=== PATIENT | male | born 1975 | race African-American/Black ===

== ENCOUNTER 2016-10-10 19:05 | Emergency (ER) | payer MEDICARE, OTHER ==
[~2016-10-10] VITALS: Ht 162.6 cm; Wt 70.0 kg
[~2016-10-10 19:05] MED LIST: ADVA100A; ALBU17I INH; MEDR4PAK3 PO
--- NOTE | 2016-10-10 19:19 | PD ---
HPI Chief Complaint: psychiatric evaluation Time Seen by Provider: 19:18 Travel History International Travel<30 days: No Contact w/Intl Traveler<30days: No History of Present Illness HPI 40-year-old male who is physically and mentally handicapped with history of cerebral palsy presents to the presents to the emergency Department under Young act by local police. According to the Young Act, he has been aggressive and throwing things at his facility that he lives in. The patient is unable to contribute much to history and physical due to disability. Patient does know his name, that he is in the hospital, and the month is September. The patient states that he was angry earlier. According to the caregiver, which the nurse called, the patient had a similar episode approximately 2 years ago was placed on hydroxyzine. He has been doing well since until today. The patient denies any medical complaints at this time. [facility] Past Medical History Asthma: Yes Cerebral Palsy: Yes Past Surgical History Neurologic Surgery: Yes (PER SISTER, BRAIN SURGERY A BABY FOR CEREBRAL PALSY ) Social History Alcohol Use: No Tobacco Use: No Substance Use: No Allergies-Medications (Allergen,Severity, Reaction): Coded Allergies: Penicillin (Verified Allergy, Severe, 10/10/16) Reported Meds & Prescriptions Reported Meds & Active Scripts Active Reported Divalproex ER (Divalproex Sodium) 250 Mg Davina 250 Mg PO HS Trazodone (Trazodone HCl) 100 Mg Tablet 100 Mg PO HS Hydroxyzine HCl 25 Mg Tab 25 Mg PO TID PRN Advair Diskus Inh (Fluticasone-Salmeterol Inh) 250-50 Mcg/Blist Aer 1 Puff INH BID Rinse mouth after use. Review of Systems Except as stated in HPI: all other systems reviewed are Neg Physical Exam Narrative GENERAL: Well-nourished, well-developed male patient, afebrile. Patient is ambulatory with assistance. SKIN: Focused skin assessment warm/dry. HEAD: Normocephalic. Atraumatic. EYES: No scleral icterus. No injection or drainage. NECK: Supple, trachea midline. No JVD or lymphadenopathy. CARDIOVASCULAR: Regular rate and rhythm without murmurs, gallops, or rubs. RESPIRATORY: Breath sounds equal bilaterally. No accessory muscle use. Lungs sounds are clear to auscultation. GASTROINTESTINAL: Abdomen soft, non-tender, nondistended. MUSCULOSKELETAL: No cyanosis, or edema. PSYCHIATRIC: No delusional thought processes. No hallucinations. Data Data Last Documented VS Vital Signs Date Time Temp Pulse Resp B/P Pulse Ox O2 Delivery O2 Flow Rate FiO2 10/10/16 19:21 98.9 89 16 111/65 99 Room Air Orders Complete Blood Count With Diff (10/10/16 19:33) Comprehensive Metabolic Panel (10/10/16 19:33) Urinalysis - C+S If Indicated (10/10/16 19:33) Psych Screen (10/10/16 19:33) Drug Screen, Random Urine (10/10/16 19:33) Alcohol (Ethanol) (10/10/16 19:33) Valproic Acid (Depakene) (10/10/16 19:35) Labs Laboratory Tests Test 10/10/16 19:46 White Blood Count 5.6 TH/MM3 Red Blood Count 4.67 MIL/MM3 Hemoglobin 14.3 GM/DL Hematocrit 41.6 % Mean Corpuscular Volume 89.0 FL Mean Corpuscular Hemoglobin 30.6 PG Mean Corpuscular Hemoglobin 34.4 % Concent Red Cell Distribution Width 13.1 % Platelet Count 204 TH/MM3 Mean Platelet Volume 8.7 FL Neutrophils (%) (Auto) 65.3 % Lymphocytes (%) (Auto) 19.4 % Monocytes (%) (Auto) 13.4 % Eosinophils (%) (Auto) 1.3 % Basophils (%) (Auto) 0.6 % Neutrophils # (Auto) 3.7 TH/MM3 Lymphocytes # (Auto) 1.1 TH/MM3 Monocytes # (Auto) 0.8 TH/MM3 Eosinophils # (Auto) 0.1 TH/MM3 Basophils # (Auto) 0.0 TH/MM3 CBC Comment DIFF FINAL Differential Comment Sodium Level 142 MEQ/L Potassium Level 4.1 MEQ/L Chloride Level 108 MEQ/L Carbon Dioxide Level 29.5 MEQ/L Anion Gap 5 MEQ/L Blood Urea Nitrogen 16 MG/DL Creatinine 1.07 MG/DL Estimat Glomerular Filtration 92 ML/MIN Rate Random Glucose 98 MG/DL Calcium Level 8.3 MG/DL Total Bilirubin 0.3 MG/DL Aspartate Amino Transf 19 U/L (AST/SGOT) Alanine Aminotransferase 25 U/L (ALT/SGPT) Alkaline Phosphatase 59 U/L Total Protein 6.4 GM/DL Albumin 3.3 GM/DL Valproic Acid (Depakene) Level 23 MCG/ML Ethyl Alcohol Level LESS THAN 3 MG/DL MDM Medical Decision Making Medical Screen Exam Complete: Yes Emergency Medical Condition: Yes Medical Record Reviewed: Yes Differential Diagnosis Depression versus anxiety versus bipolar disorder versus agitation versus Cerebral palsy versus electrolyte abnormality Narrative Course 40-year-old male with mental and physical disability presents to the emergency Department under Young act by local police for being aggressive at his facility. The patient is unable to contribute much to the history and physical , but does know that his name, but he is in the hospital, and it is September. The patient has no medical complaints right now. CBC, CMP, UA, urine drug screen, alcohol level, Depakote level are ordered and pending. CBC shows no acute abnormality. CMP shows no acute abnormal. Depakote level is 23. Alcohol level is less than 3. UDS is pending. Patient is negative for psychiatric screening and disposition. Mental health screening discussed with the patient. Psychiatric screen ordered. Diagnosis Primary Impression: Difficulty controlling anger Additional Instructions: Patient is medically cleared for psychiatric screening and disposition. Condition: Stable Catrachito,Aracelis BUSTILLO Oct 10, 2016 19:19
[2016-10-10 19:21] VITALS: BP 111/65; PULSE 89; RESP 16; TEMP 98.9; O2SAT 99
[2016-10-10] MEDS ORDERED: DIVA250T3 PO (19:40)
[2016-10-10] MEDS ORDERED: TRAZ100T6 PO (19:40)
[2016-10-10] MEDS ORDERED: HYDR-3133 PO (19:40)
[2016-10-10] MEDS ORDERED: ADVA250A INH (19:40)
[2016-10-10 20:13] LABS: AUTOMATED NEUTROPHIL # 3.7 TH/MM3 (1.8-7.7); BASOPHIL % 0.6 % (0.0-2.0); EOSINOPHIL # 0.1 TH/MM3 (0-0.4); EOSINOPHIL % 1.3 % (0.0-4.0); HEMATOCRIT 41.6 % (39.0-51.0); HEMO FLAGS DIFF FINAL; LYMPH % 19.4 % (9.0-44.0); LYMPHOCYTE # 1.1 TH/MM3 (1.0-4.8); MEAN CORPUSCULAR HEMOGLOBIN 30.6 PG (27.0-34.0); MEAN CORPUSCULAR HGB CONC 34.4 % (32.0-36.0); MONO % 13.4 % (0.0-8.0); NEUT % 65.3 % (16.0-70.0); PLATELET COUNT 204 TH/MM3 (150-450); RED BLOOD COUNT 4.67 MIL/MM3 (4.50-5.90); RED CELL DISTRIBUTION WIDTH 13.1 % (11.6-17.2); WHITE BLOOD COUNT 5.6 TH/MM3 (4.0-11.0)
[2016-10-10 20:30] LABS: ALT (GPT) 25 U/L (12-78); ANION GAP 5 MEQ/L (5-15); AST (GOT) 19 U/L (15-37); BICARBONATE 29.5 MEQ/L (21.0-32.0); BLOOD UREA NITROGEN 16 MG/DL (7-18); CHLORIDE 108 MEQ/L (98-107); GLOMERULAR FILTRATION RATE 92 ML/MIN (>89); POTASSIUM 4.1 MEQ/L (3.5-5.1); SODIUM (NA) 142 MEQ/L (136-145)
[2016-10-10 20:33] LABS: ALKALINE PHOSPHATASE 59 U/L (45-117); TOTAL BILIRUBIN ADULT 0.3 MG/DL (0.2-1.0)
[2016-10-10 21:14] VITALS: BP 113/62; PULSE 68; RESP 18; TEMP 97.7; O2SAT 99
[2016-10-11 02:08] VITALS: BP 95/51; PULSE 59; RESP 18; TEMP 98.5; O2SAT 97
[2016-10-11 04:12] LABS: AMPHETAMINE, URINE NEG (NEG); BARBITURATES, URINE NEG (NEG); COCAINE, URINE NEG (NEG)
[2016-10-11 06:16] VITALS: BP 102/58; PULSE 60; RESP 19; O2SAT 98
--- NOTE | 2016-10-11 10:08 | PD ---
History of Present Illness Chief Complaint: Psychiatric Symptoms Time Seen by Provider: 09:45 Travel History International Travel<30 Days: No Contact w/Intl Traveler<30days: No Known affected area: No Legal Status Legal Status: Young Act Young Act Signed By: Chon Young Act Comment: 10/10/2016 7:00 PM History of Present Illness: Obviously mentally retarded individual, for whom the BA does not apply. He is calm and cooperative. Not appropriate for psychiatric admission. Should be seen by outpatient physician but don't know if medication change is warranted given this was the only episode in 2 years. Valproic acid level noted to be subtherapeutic at 23. PFSH Past Medical History Narrative Medical History of cerebral palsy Asthma: Yes Cerebral Palsy: Yes Immunizations Current: Yes (uto) Past Surgical History Neurologic Surgery: Yes (PER SISTER, BRAIN SURGERY A BABY FOR CEREBRAL PALSY ) Psychiatric History Psychiatric History Hx Psychiatric Treatment: NONE PER CHRISTIAN, ALEJANDRO History of Inpatient Treatment: No Guns or firearms in home: No Social History Hx Alcohol Use: No (uto) Hx Tobacco Use: No (uto) Hx Substance Use: No Hx of Substance Use Treatment: No Allergies-Medications (Allergen,Severity, Reaction): Coded Allergies: Penicillin (Verified Allergy, Severe, 10/10/16) Reported Meds & Prescriptions Reported Meds & Active Scripts Active Reported Divalproex ER (Divalproex Sodium) 250 Mg Davina 250 Mg PO HS Trazodone (Trazodone HCl) 100 Mg Tablet 100 Mg PO HS Hydroxyzine HCl 25 Mg Tab 25 Mg PO TID PRN Advair Diskus Inh (Fluticasone-Salmeterol Inh) 250-50 Mcg/Blist Aer 1 Puff INH BID Rinse mouth after use. Review of Systems ROS Limitations: Speech Impaired, Poor Historian, Other Except as stated in HPI: all other systems reviewed are Neg Exam Alert: Yes [place]: Person, Place Mood: Calm Affect: Other Speech: Slurred Eye Contact: Indirect Memory Intact: Comment (appears baseline) Insight/Judgement Appears baseline MDM Medical Decision Making Medical Record Reviewed: Yes Assessment/Plan 40-year-old male with history of cerebral palsy, dental retardation and asthma. Brought in under a Young act for a caregiver described aggressive outbursts. Patient has been calm and cooperative since his arrival. Young act is being lifted and patient being sent home. Should follow up with his physician. Depakote level low and dosage should be increased to at least therapeutic levels. Orders Complete Blood Count With Diff (10/10/16 19:33) Comprehensive Metabolic Panel (10/10/16 19:33) Psych Screen (10/10/16 19:33) Drug Screen, Random Urine (10/10/16 19:33) Alcohol (Ethanol) (10/10/16 19:33) Valproic Acid (Depakene) (10/10/16 19:35) Diet Regular Basic (10/11/16 Breakfast) Results Vital Signs Date Time Temp Pulse Resp B/P Pulse Ox O2 Delivery O2 Flow Rate FiO2 10/11/16 06:16 60 19 102/58 98 Room Air 10/11/16 02:08 98.5 59 18 95/51 97 Room Air 10/10/16 21:14 97.7 68 18 113/62 99 Room Air 10/10/16 19:21 98.9 89 16 111/65 99 Room Air Laboratory Tests Test 10/10/16 10/11/16 19:46 03:45 White Blood Count 5.6 Red Blood Count 4.67 Hemoglobin 14.3 Hematocrit 41.6 Mean Corpuscular Volume 89.0 Mean Corpuscular Hemoglobin 30.6 Mean Corpuscular Hemoglobin 34.4 Concent Red Cell Distribution Width 13.1 Platelet Count 204 Mean Platelet Volume 8.7 Neutrophils (%) (Auto) 65.3 Lymphocytes (%) (Auto) 19.4 Monocytes (%) (Auto) 13.4 Eosinophils (%) (Auto) 1.3 Basophils (%) (Auto) 0.6 Neutrophils # (Auto) 3.7 Lymphocytes # (Auto) 1.1 Monocytes # (Auto) 0.8 Eosinophils # (Auto) 0.1 Basophils # (Auto) 0.0 CBC Comment DIFF FINAL Differential Comment Sodium Level 142 Potassium Level 4.1 Chloride Level 108 Carbon Dioxide Level 29.5 Anion Gap 5 Blood Urea Nitrogen 16 Creatinine 1.07 Estimat Glomerular Filtration 92 Rate Random Glucose 98 Calcium Level 8.3 Total Bilirubin 0.3 Aspartate Amino Transf 19 (AST/SGOT) Alanine Aminotransferase 25 (ALT/SGPT) Alkaline Phosphatase 59 Total Protein 6.4 Albumin 3.3 Valproic Acid (Depakene) Level 23 Ethyl Alcohol Level LESS THAN 3 Urine Opiates Screen NEG Urine Barbiturates Screen NEG Urine Amphetamines Screen NEG Urine Benzodiazepines Screen NEG Urine Cocaine Screen NEG Urine Cannabinoids Screen NEG Diagnosis Primary Impression: Intermittent explosive disorder Additional Impressions: Mental retardation History of asthma Additional Instructions: Patient is medically cleared for psychiatric screening and disposition. Condition: Stable Problem Qualifiers Magno Saenz MD Oct 11, 2016 10:08
[2016-10-11 11:41] VITALS: BP 102/58; TEMP 98.3
== END 2016-10-11 11:45 | disposition home or self-care (01) ==
LOC: NEPD 19:05 → NEPJ 10-11 11:45
DX: F63.81 Intermittent explosive disorder (principal); F79 Unspecified intellectual disabilities; G80.9 Cerebral palsy, unspecified
CPT/HCPCS: 80053; 80164; 80307; 85025; 99284

== ENCOUNTER 2016-11-17 17:24 | Emergency (ER) | payer MEDICARE, OTHER ==
[~2016-11-17] VITALS: Ht 157.5 cm; Wt 82.0 kg
[~2016-11-17 17:24] MED LIST changes: -ADVA100A; +ADVA250A INH; -ALBU17I INH; +DIVA250T3 PO; +HYDR-3133 PO; -MEDR4PAK3 PO; +TRAZ100T6 PO
[2016-11-17 17:35] VITALS: BP 129/80; PULSE 99; RESP 14; TEMP 98.1; O2SAT 99
--- NOTE | 2016-11-17 17:43 | PD ---
HPI Chief Complaint: Psychiatric Symptoms Time Seen by Provider: 17:35 Travel History International Travel<30 days: No Contact w/Intl Traveler<30days: No Traveled to known affect area: No History of Present Illness HPI The patient is a 41-year-old [place] male who presents to the emergency department via EMS and police as a Young act. The patient has a history of mental retardation and intermittent explosive disorder. The patient currently resides in assisted living facility and according to staff at the [facility] the patient got angry and upset when he was not allowed outside. The police were called after the patient got violent, the railroad police states when he arrived that the patient was "squared off " facing a staff member with his fists clenched. The railroad police then placed the patient in a sitting position and the railroad police states the patient was swinging himself and was throwing issues around the room. He also states the patient kicked the door in. Therefore, the patient was placed under a Young act. Upon arrival the patient is a poor historian and offers little insight. He denies any current physical complaints. PFSH Past Medical History Asthma: Yes Cerebral Palsy: Yes Immunizations Current: Yes (uto) Past Surgical History Neurologic Surgery: Yes (PER SISTER, BRAIN SURGERY A BABY FOR CEREBRAL PALSY ) Social History Alcohol Use: No (uto) Tobacco Use: No (uto) Substance Use: No Allergies-Medications (Allergen,Severity, Reaction): Coded Allergies: Penicillin (Verified Allergy, Severe, 11/17/16) Reported Meds & Prescriptions Reported Meds & Active Scripts Active Reported Divalproex ER (Divalproex Sodium) 250 Mg Davina 250 Mg PO HS Trazodone (Trazodone HCl) 100 Mg Tablet 100 Mg PO HS Hydroxyzine HCl 25 Mg Tab 25 Mg PO TID PRN Advair Diskus Inh (Fluticasone-Salmeterol Inh) 250-50 Mcg/Blist Aer 1 Puff INH BID Rinse mouth after use. Review of Systems ROS Limitations: Clinical Condition Except as stated in HPI: all other systems reviewed are Neg Psychiatric: Positive: Other (per history of present illness) Physical Exam Narrative GENERAL: Awake, alert, 41-year-old male appears his stated age and is in no acute respiratory distress. SKIN: Focused skin assessment warm/dry. HEAD: Large well-healed scar on the right occipital/parietal region. EYES: Left eye is white, no obvious pupil, blind in the left eye. Right pupil is 3 mm and reactive. ENT: No nasal bleeding or discharge. Mucous membranes pink and moist. NECK: Trachea midline. No JVD. CARDIOVASCULAR: Regular rate and rhythm. No murmur appreciated. RESPIRATORY: No accessory muscle use. Clear to auscultation. Breath sounds equal bilaterally. GASTROINTESTINAL: Abdomen soft, non-tender, nondistended. No rebound tenderness. MUSCULOSKELETAL: No obvious deformities. No clubbing. No cyanosis. No edema. NEUROLOGICAL: Awake and alert. No obvious cranial nerve deficits. Motor grossly within normal limits. Speech is slightly hard to understand. PSYCHIATRIC: Agitated. Data Data Last Documented VS Vital Signs Date Time Temp Pulse Resp B/P Pulse Ox O2 Delivery O2 Flow Rate FiO2 11/17/16 17:38 17 11/17/16 17:35 98.1 99 129/80 99 Orders Complete Blood Count With Diff (11/17/16 17:35) Comprehensive Metabolic Panel (11/17/16 17:35) Valproic Acid (Depakene) (11/17/16 17:35) Psych Screen (11/17/16 17:35) Restraints Violent (11/17/16 17:35) Drug Screen, Random Urine (11/17/16 17:35) Labs Laboratory Tests Test 11/17/16 17:45 White Blood Count 6.2 TH/MM3 Red Blood Count 4.78 MIL/MM3 Hemoglobin 14.8 GM/DL Hematocrit 42.5 % Mean Corpuscular Volume 88.9 FL Mean Corpuscular Hemoglobin 31.0 PG Mean Corpuscular Hemoglobin 34.8 % Concent Red Cell Distribution Width 13.3 % Platelet Count 199 TH/MM3 Mean Platelet Volume 8.8 FL Neutrophils (%) (Auto) 68.1 % Lymphocytes (%) (Auto) 18.3 % Monocytes (%) (Auto) 11.4 % Eosinophils (%) (Auto) 1.5 % Basophils (%) (Auto) 0.7 % Neutrophils # (Auto) 4.2 TH/MM3 Lymphocytes # (Auto) 1.1 TH/MM3 Monocytes # (Auto) 0.7 TH/MM3 Eosinophils # (Auto) 0.1 TH/MM3 Basophils # (Auto) 0.0 TH/MM3 CBC Comment DIFF FINAL Differential Comment Sodium Level 139 MEQ/L Potassium Level 4.0 MEQ/L Chloride Level 104 MEQ/L Carbon Dioxide Level 26.0 MEQ/L Anion Gap 9 MEQ/L Blood Urea Nitrogen 18 MG/DL Creatinine 1.23 MG/DL Estimat Glomerular Filtration 78 ML/MIN Rate Random Glucose 119 MG/DL Calcium Level 8.2 MG/DL Total Bilirubin 0.3 MG/DL Aspartate Amino Transf 31 U/L (AST/SGOT) Alanine Aminotransferase 29 U/L (ALT/SGPT) Alkaline Phosphatase 58 U/L Total Protein 6.8 GM/DL Albumin 3.5 GM/DL Urine Opiates Screen NEG Urine Barbiturates Screen NEG Valproic Acid (Depakene) Level 26 MCG/ML Urine Amphetamines Screen NEG Urine Benzodiazepines Screen NEG Urine Cocaine Screen NEG Urine Cannabinoids Screen NEG MDM Medical Decision Making Medical Screen Exam Complete: Yes Emergency Medical Condition: Yes Medical Record Reviewed: Yes Interpretation(s) Laboratory Tests Test 11/17/16 17:45 White Blood Count 6.2 TH/MM3 Red Blood Count 4.78 MIL/MM3 Hemoglobin 14.8 GM/DL Hematocrit 42.5 % Mean Corpuscular Volume 88.9 FL Mean Corpuscular Hemoglobin 31.0 PG Mean Corpuscular Hemoglobin 34.8 % Concent Red Cell Distribution Width 13.3 % Platelet Count 199 TH/MM3 Mean Platelet Volume 8.8 FL Neutrophils (%) (Auto) 68.1 % Lymphocytes (%) (Auto) 18.3 % Monocytes (%) (Auto) 11.4 % Eosinophils (%) (Auto) 1.5 % Basophils (%) (Auto) 0.7 % Neutrophils # (Auto) 4.2 TH/MM3 Lymphocytes # (Auto) 1.1 TH/MM3 Monocytes # (Auto) 0.7 TH/MM3 Eosinophils # (Auto) 0.1 TH/MM3 Basophils # (Auto) 0.0 TH/MM3 CBC Comment DIFF FINAL Differential Comment Sodium Level 139 MEQ/L Potassium Level 4.0 MEQ/L Chloride Level 104 MEQ/L Carbon Dioxide Level 26.0 MEQ/L Anion Gap 9 MEQ/L Blood Urea Nitrogen 18 MG/DL Creatinine 1.23 MG/DL Estimat Glomerular Filtration 78 ML/MIN Rate Random Glucose 119 MG/DL Calcium Level 8.2 MG/DL Total Bilirubin 0.3 MG/DL Aspartate Amino Transf 31 U/L (AST/SGOT) Alanine Aminotransferase 29 U/L (ALT/SGPT) Alkaline Phosphatase 58 U/L Total Protein 6.8 GM/DL Albumin 3.5 GM/DL Urine Opiates Screen NEG Urine Barbiturates Screen NEG Valproic Acid (Depakene) Level 26 MCG/ML Urine Amphetamines Screen NEG Urine Benzodiazepines Screen NEG Urine Cocaine Screen NEG Urine Cannabinoids Screen NEG Differential Diagnosis Differential diagnosis includes intermittent explosive disorder, mental retardation, cerebral palsy, oppositional fine disorder, subtherapeutic Depakote level, bipolar affective disorder, schizoaffective disorder. Narrative Course Labs were drawn and sent. Psychiatric evaluation was ordered. Depakote level was sent to lab. Labs are unremarkable. The patient is medically cleared to be evaluated by psychiatry. Diagnosis Primary Impression: Intermittent explosive disorder Condition: Stable Franco Duke MD Nov 17, 2016 17:43
[2016-11-17 18:24] LABS: AUTOMATED NEUTROPHIL # 4.2 TH/MM3 (1.8-7.7); BASOPHIL % 0.7 % (0.0-2.0); EOSINOPHIL # 0.1 TH/MM3 (0-0.4); EOSINOPHIL % 1.5 % (0.0-4.0); HEMATOCRIT 42.5 % (39.0-51.0); HEMO FLAGS DIFF FINAL; LYMPH % 18.3 % (9.0-44.0); LYMPHOCYTE # 1.1 TH/MM3 (1.0-4.8); MEAN CELL VOLUME 88.9 FL (80.0-100.0); MEAN CORPUSCULAR HGB CONC 34.8 % (32.0-36.0); MONO % 11.4 % (0.0-8.0); NEUT % 68.1 % (16.0-70.0); PLATELET COUNT 199 TH/MM3 (150-450); RED BLOOD COUNT 4.78 MIL/MM3 (4.50-5.90); RED CELL DISTRIBUTION WIDTH 13.3 % (11.6-17.2); WHITE BLOOD COUNT 6.2 TH/MM3 (4.0-11.0)
[2016-11-17 18:44] LABS: AMPHETAMINE, URINE NEG (NEG); BARBITURATES, URINE NEG (NEG); COCAINE, URINE NEG (NEG)
[2016-11-17 18:46] LABS: ALT (GPT) 29 U/L (12-78)
[2016-11-17 18:48] LABS: ALKALINE PHOSPHATASE 58 U/L (45-117); TOTAL BILIRUBIN ADULT 0.3 MG/DL (0.2-1.0)
[2016-11-17 18:51] LABS: ANION GAP 9 MEQ/L (5-15); AST (GOT) 31 U/L (15-37); BLOOD UREA NITROGEN 18 MG/DL (7-18); CHLORIDE 104 MEQ/L (98-107); GLOMERULAR FILTRATION RATE 78 ML/MIN (>89); SODIUM (NA) 139 MEQ/L (136-145)
[2016-11-17 19:16] VITALS: BP 133/80; PULSE 86; RESP 18; O2SAT 98
[2016-11-17 23:17] VITALS: BP 132/79; PULSE 79; RESP 18; TEMP 99; O2SAT 99
[2016-11-18 02:12] VITALS: BP 114/70; PULSE 77; RESP 18; TEMP 98.6; O2SAT 98
[2016-11-18 05:53] VITALS: BP 99/56; PULSE 69; RESP 16; TEMP 98.6; O2SAT 98
--- NOTE | 2016-11-18 15:39 | PD ---
History of Present Illness Chief Complaint: Psychiatric Symptoms Time Seen by Provider: 15:00 Travel History International Travel<30 Days: No Contact w/Intl Traveler<30days: No Known affected area: No Legal Status Legal Status: Young Act Young Act Signed By: Chon Morrison Young Act Comment: 11/17/16 5:00 PM History of Present Illness: 41-year-old male with a history of intellectual disability sent in under a Young act for reported outburst at facility. EMR reviewed. Patient seen by Dr. Saenz in September of this year for essentially the same presentation. Young act lifted at that time because the patient didn't have a mental illness as defined under the Young act. Patient seen and examined. Chart reviewed. Case discussed with nurse in the J- [facility]. Patient has been calm in the J-pod. No evidence of suicidality or homicidality. On my exam, patient presents as I suspect severely intellectually disabled. He is presently calm. Unable to participate in exam to any meaningful detail because of his degree of intellectual disability. No evidence of internal stimulation. No evidence of suicidality or violence at the time of my examination. PFSH Past Medical History Asthma: Yes Cerebral Palsy: Yes Medical other: Yes (MENTAL RETARDATION) Respiratory: Yes (RHINITIS) Immunizations Current: Yes (uto) Past Surgical History Neurologic Surgery: Yes (PER SISTER, BRAIN SURGERY A BABY FOR CEREBRAL PALSY ) Psychiatric History Psychiatric History Unable to obtain from patient as a consequence of his intellectual disability Hx Psychiatric Treatment: UNKNOWN History of Inpatient Treatment: No Social History Unable to obtain from patient. Patient apparently resides in a facility. Hx Alcohol Use: No (uto) Hx Tobacco Use: No (uto) Hx Substance Use: No Hx of Substance Use Treatment: No Family Psychiatric History Unable to obtain from patient. Allergies-Medications (Allergen,Severity, Reaction): Coded Allergies: Penicillin (Verified Allergy, Severe, 11/17/16) Reported Meds & Prescriptions Reported Meds & Active Scripts Active Reported Divalproex ER (Divalproex Sodium) 250 Mg Davina 250 Mg PO HS Trazodone (Trazodone HCl) 100 Mg Tablet 100 Mg PO HS Hydroxyzine HCl 25 Mg Tab 25 Mg PO TID PRN Advair Diskus Inh (Fluticasone-Salmeterol Inh) 250-50 Mcg/Blist Aer 1 Puff INH BID Rinse mouth after use. Review of Systems ROS Limitations: Poor Historian Other ROS limited Exam Alert: Yes [place]: Person Mood: Calm Affect: Other (childlike) Eye Contact: Other (orients to voice, but I am told that the patient is visually impaired) Memory Intact: Comment (unable to assess) Hallucinations: Other (does not appear internally stimulated) Delusions: No (none noted) Suicidal: Ideation (no SI voiced. No evidence of suicidality in the ED.) Homicidal: Ideation (no HI voiced. No evidence of homicidality in the ED.) Insight/Judgement Poor Remarks Essentially nonverbal. MDM Medical Decision Making Medical Record Reviewed: Yes Assessment/Plan 41-year-old male with a history of intellectual disability brought into the ED under a Young act. Patient's primary issue seems to be the intellectual disability, and I do not appreciate any mental illness as defined under the Young act. Consequently, the patient does not meet Young act criteria. Young act lifted. Patient to be returned to facility. He should follow-up closely with outpatient mental health provider for medication adjustments. Return to ED for any concerning psychiatric symptoms. Orders Complete Blood Count With Diff (11/17/16 17:35) Comprehensive Metabolic Panel (11/17/16 17:35) Valproic Acid (Depakene) (11/17/16 17:35) Psych Screen (11/17/16 17:35) Restraints Violent (11/17/16 17:35) Drug Screen, Random Urine (11/17/16 17:35) Diet Regular Basic (11/18/16 Breakfast) Diet Regular Basic (11/18/16 Lunch) Diet Regular Basic (11/18/16 Dinner) Results Vital Signs Date Time Temp Pulse Resp B/P Pulse Ox O2 Delivery O2 Flow Rate FiO2 11/18/16 05:53 98.6 69 16 99/56 98 11/18/16 04:57 18 11/18/16 02:12 98.6 77 18 114/70 98 11/17/16 23:17 99.0 79 18 132/79 99 11/17/16 19:16 86 18 133/80 98 Room Air 11/17/16 17:38 17 11/17/16 17:35 98.1 99 14 129/80 99 Laboratory Tests Test 11/17/16 17:45 White Blood Count 6.2 Red Blood Count 4.78 Hemoglobin 14.8 Hematocrit 42.5 Mean Corpuscular Volume 88.9 Mean Corpuscular Hemoglobin 31.0 Mean Corpuscular Hemoglobin 34.8 Concent Red Cell Distribution Width 13.3 Platelet Count 199 Mean Platelet Volume 8.8 Neutrophils (%) (Auto) 68.1 Lymphocytes (%) (Auto) 18.3 Monocytes (%) (Auto) 11.4 Eosinophils (%) (Auto) 1.5 Basophils (%) (Auto) 0.7 Neutrophils # (Auto) 4.2 Lymphocytes # (Auto) 1.1 Monocytes # (Auto) 0.7 Eosinophils # (Auto) 0.1 Basophils # (Auto) 0.0 CBC Comment DIFF FINAL Differential Comment Sodium Level 139 Potassium Level 4.0 Chloride Level 104 Carbon Dioxide Level 26.0 Anion Gap 9 Blood Urea Nitrogen 18 Creatinine 1.23 Estimat Glomerular Filtration 78 Rate Random Glucose 119 Calcium Level 8.2 Total Bilirubin 0.3 Aspartate Amino Transf 31 (AST/SGOT) Alanine Aminotransferase 29 (ALT/SGPT) Alkaline Phosphatase 58 Total Protein 6.8 Albumin 3.5 Urine Opiates Screen NEG Urine Barbiturates Screen NEG Valproic Acid (Depakene) Level 26 Urine Amphetamines Screen NEG Urine Benzodiazepines Screen NEG Urine Cocaine Screen NEG Urine Cannabinoids Screen NEG Diagnosis Primary Impression: Mental retardation Psychiatrically Cleared: Yes Referrals: Outpatient psychiatrist Condition: Stable Ion Faustin MD Nov 18, 2016 15:39
[2016-11-18 16:35] VITALS: BP 99/56
== END 2016-11-18 17:00 | disposition home or self-care (01) ==
LOC: NEPC 17:24 → NEPJ 11-18 17:00
DX: F79 Unspecified intellectual disabilities (principal); J45.909 Unspecified asthma, uncomplicated; G80.9 Cerebral palsy, unspecified; Z79.52 Long term (current) use of systemic steroids; Z79.899 Other long term (current) drug therapy; Z88.0 Allergy status to penicillin
CPT/HCPCS: 80053; 80164; 80307; 85025; 99283